=== PATIENT | female | born 1995 | race Caucasian/White ===

== ENCOUNTER 2020-06-12 15:58 | Inpatient (IN) | payer OTHER ==
[~2020-06-12] VITALS: Ht 188 cm; Wt 77.6 kg
[2020-06-12] MEDS ORDERED: IV RINGERS,LACTATED 1000ML 1,000 ML IV SCH (16:01)
[2020-06-12 16:36] LABS: BASO # 0.1 x10^3/uL (0.0-0.2); BASO % 0 % (0-3); EOS # 0.2 x10^3/uL (0.0-0.7); EOS % 1 % (0-3); HEMOGLOBIN 14.1 g/dL (12.0-15.5); LYMPH # 2.8 x10^3/uL (1.0-4.8); LYMPH % 14 % (24-48); MEAN CORPUSCULAR HEMOGLOBIN 33 pg (25-35); MEAN CORPUSCULAR HGB CONC 34 g/dL (31-37); MEAN CORPUSCULAR VOLUME 97 fL (79-100); MONO # 1.2 x10^3/uL (0.0-1.1); MONO % 6 % (0-9); NEUT # 15.7 x10^3/uL (1.8-7.7); NEUT % 79 % (31-73); PLATELET COUNT 388 x10^3/uL (140-400); RED BLOOD COUNT 4.23 x10^6/uL (3.50-5.40); RED CELL DISTRIBUTION WIDTH 13.9 % (11.5-14.5)
[2020-06-12 16:37] LABS: BILIRUBIN,URINE NEGATIVE (NEG); CLARITY,URINE CLEAR; COLOR,URINE YELLOW; NITRITE,URINE NEGATIVE (NEG); PROTEIN,URINE NEGATIVE (NEG-TRACE); UROBILINOGEN,URINE 0.2 mg/dL (0.2 mg/dL)
[2020-06-12 16:50] LABS: BACTERIA,URINE MANY /HPF (0-FEW); RBC,URINE OCC /HPF (0-2); SQUAMOUS EPITHELIAL CELL,UR MOD /LPF
[2020-06-12 17:00] LABS: CALCIUM 9.5 mg/dL (8.5-10.1); CREATININE 0.6 mg/dL (0.6-1.0); GFR 121.8; POTASSIUM 4.1 mmol/L (3.5-5.1)
[2020-06-12 17:01] LABS: CREATININE,RANDOM URINE 28.8 mg/dL (Not Establ.)
[2020-06-12 17:06] LABS: ALBUMIN 2.8 g/dL (3.4-5.0); ALBUMIN/GLOBULIN RATIO 0.7 (1.0-1.7); TOTAL BILIRUBIN 0.2 mg/dL (0.2-1.0); TOTAL PROTEIN 6.8 g/dL (6.4-8.2)
[2020-06-12] MEDS ORDERED: LIDOCAINE 1% PF 30 ML VIAL. INJ PRN (17:45)
[2020-06-12] MEDS ORDERED: CITRIC ACID/SODIUM CITRATE 30 ML SOLUTION. PO PRN (17:45)
[2020-06-12] MEDS ORDERED: 0.9 % SODIUM CHLORIDE 10 ML DISP.SYRIN. IV PRN (17:45)
[2020-06-12] MEDS ORDERED: ONDANSETRON PF 4 MG/2 ML VIAL. IVP PRN (17:45)
[2020-06-12] MEDS ORDERED: IBUPROFEN 400 MG TABLET. PO PRN (17:45)
[2020-06-12] MEDS ORDERED: TERBUTALINE 1 MG/ML VIAL. SQ PRN (17:45)
[2020-06-12] MEDS ORDERED: OXYTOCIN 30 UNIT/500 ML PREMIX 500 ML IV PRN ×2 (17:45)
[2020-06-12] MEDS ORDERED: fentaNYL PF VIAL 100 MCG/2 ML VIAL IVP PRN ×2 (17:45)
[2020-06-12 18:10] VITALS: BP 128/71
[2020-06-12] MEDS ORDERED: PREN1TAB58 PO (18:17)
[2020-06-12] MEDS ORDERED: DINOPROSTONE 10 MG SUPP.VAG VG ONE (19:00)
[2020-06-12] MEDS ORDERED: PENICILLIN G K 5,000,000 UNIT in IV DEXTROSE 5% 100ML 100 ML IV ONE (19:00)
[2020-06-12 19:24] LABS: % BANDS 2 % (0-9); % LYMPHS 9 % (24-48); % MONOS 10 % (0-10); % SEGS 79 % (35-66); PLT ESTIMATE ADEQUATE (ADEQUATE)
[2020-06-12] MEDS ORDERED: diphenhydrAMINE HCL 25 MG CAPSULE PO PRN (20:00)
--- NOTE | 2020-06-13 00:56 | PDOC1 ---
OB - History Hx of Present Care: Good Care Ultrasounds: Normal mid trimester US Obstetrical Complications: Pre-eclampsia Medical Complications: None Past Family/Social History * Past Medical, Surgical, Family and Obstetric Histories reviewed from chart. Rubella: Immune RPR/VDRL: Negative GBS Status: Positive HBsAG: Negative OB - Chief Complaint & HPI Date of Admission: Date of Admission: Jun 12, 2020 at 17:34 Chief Complaint/History : 5 Para: 3 EGA: 38 Reason for admission: induction of labor (preeclampsia) Admission Nurse Assessment Rev: Yes OB - Admission Exam Physical Exam Vitals: VS - Last 72 Hours, by Label Date Time Temp Pulse Resp B/P (MAP) Pulse Ox O2 Delivery O2 Flow Rate FiO2 06/12/20 18:10 99.0 100 20 128/71 (90) Room Air 99.0 HEENT: Normal Heart: Regular Rate Lungs: Clear Abdomen: Gravid, Non tender, Soft Extremities: Edema Reflexes: Normal Cervical Dilatation: 2cm Effacement: 75% Station: -3 Membranes: Intact Heart Rate: Normal Accelerations: Accelerations Present Decelerations: No decelerations Contractions on Admission: None Text A: 38 wks IUP Preeclampsia: mild P: Admit IOL for preeclampsia with cervidil, then pitocin in am. HAM MARIN Jr, MD Jun 13, 2020 00:56
[2020-06-13] MEDS: PENICILLIN G K 2,500,000 UNIT in IV DEXTROSE 5% 50 ML IV SCH ×2 (03:01→08:10)
[2020-06-13] MEDS: IV RINGERS,LACTATED 1000ML 1,000 ML IV SCH (06:29)
--- NOTE | 2020-06-13 10:56 | PDOC ---
VAGINAL DELIVERY DATE DATE: 06/13/20 TIME: 10:53 : 5 Para: 4 EGA: 38 VAGINAL DELIVERY: VTX VACCUM ASSISTED: No PLACENTA: Spontaneous 8/9 SEX: Female WEIGHT Weight [ pending ] Nuchal Cord: No Amniotic Fluid: Clear PAIN: Natural EPISIOTOMY: No EXTENSION: Yes (1 st degree midline laceration; hemostatic) REPAIRED WITH no repair EBL 300 ml COMPLICATIONS none CONDITION pt. stable Signs of Intrauterine Infectio: None Shoulder Dystocia: No HAM MARIN Jr, MD Jun 13, 2020 10:55
[2020-06-13] MEDS ORDERED: diphenhydrAMINE HCL 25 MG CAPSULE PO PRN (11:00)
[2020-06-13] MEDS ORDERED: HYDROCORTISONE 1% TOPICAL OINTMENT 30GM TUBE. TP PRN (11:00)
[2020-06-13] MEDS ORDERED: DOCUSATE SODIUM 100 MG CAPSULE. PO PRN (11:00)
[2020-06-13] MEDS ORDERED: SIMETHICONE 80 MG TAB.CHEW PO PRN (11:00)
[2020-06-13] MEDS ORDERED: PHENYLEPH/MINERAL OIL/PETROLAT RECTAL OINTMENT TUBE. RC PRN (11:00)
[2020-06-13] MEDS ORDERED: MAGNESIUM HYDROXIDE 2,400 MG/30 ML ORAL.SUSP. PO PRN (11:00)
[2020-06-13] MEDS ORDERED: TDaP (Adacel) per PROTOCOL. MC PRN (11:00)
[2020-06-13] MEDS ORDERED: MAG HYDROX/ALUMINUM HYD/SIMETH 30 ML ORAL.SUSP PO PRN (11:00)
[2020-06-13] MEDS ORDERED: MMR per PROTOCOL. MC PRN (11:00)
[2020-06-13] MEDS ORDERED: OXYTOCIN 30 UNIT/500 ML PREMIX 500 ML IV PRN (11:00)
[2020-06-13] MEDS ORDERED: ZOLPIDEM 5 MG TABLET. PO PRN (11:00)
[2020-06-13] MEDS ORDERED: oxyCODONE/APAP 5/325 1 TAB TABLET PO PRN (11:00)
[2020-06-13] MEDS ORDERED: 0.9 % SODIUM CHLORIDE 10 ML DISP.SYRIN. IV PRN (11:00)
[2020-06-13] MEDS ORDERED: ACETAMINOPHEN 325 MG TABLET. PO PRN (11:00)
[2020-06-13] MEDS ORDERED: BENZOCAINE 20% TOPICAL AEROSOL SPRAY 57GM CAN. TP PRN (11:00)
[2020-06-13 12:45] VITALS: BP 102/60
[2020-06-13 13:45] VITALS: BP 121/73
[2020-06-13 16:41] VITALS: BP 116/75
[2020-06-13] MEDS ORDERED: FERROUS SULFATE 325 MG TABLET. PO SCH (17:00)
[2020-06-13 20:40] VITALS: BP 98/58
[2020-06-14] MEDS: IBUPROFEN 400 MG TABLET. PO PRN ×3 (00:12→18:04)
[2020-06-14 04:38] LABS: BASO % 0 % (0-3); EOS # 0.1 x10^3/uL (0.0-0.7); EOS % 1 % (0-3); HEMATOCRIT 37.9 % (36.0-47.0); HEMOGLOBIN 12.9 g/dL (12.0-15.5); LYMPH # 2.7 x10^3/uL (1.0-4.8); LYMPH % 16 % (24-48); MEAN CORPUSCULAR HEMOGLOBIN 33 pg (25-35); MEAN CORPUSCULAR HGB CONC 34 g/dL (31-37); MEAN CORPUSCULAR VOLUME 98 fL (79-100); MONO # 1.3 x10^3/uL (0.0-1.1); MONO % 8 % (0-9); NEUT # 12.7 x10^3/uL (1.8-7.7); NEUT % 76 % (31-73); PLATELET COUNT 357 x10^3/uL (140-400); RED BLOOD COUNT 3.87 x10^6/uL (3.50-5.40); RED CELL DISTRIBUTION WIDTH 14.1 % (11.5-14.5); WHITE BLOOD COUNT 16.9 x10^3/uL (4.0-11.0)
[2020-06-14] MEDS: IV RINGERS,LACTATED 1000ML 1,000 ML IV SCH (06:03)
[2020-06-14 06:18] VITALS: BP 105/66
--- NOTE | 2020-06-14 08:35 | PDOC ---
OB Progress Note Date of Service 06/14/20 Time of Evaluation 0830 Notes PT. feeling well. No complaints. Lab Laboratory Tests Test 06/12/20 16:20 06/12/20 17:28 06/12/20 20:30 06/14/20 03:05 White Blood Count 20.0 x10^3/uL (4.0-11.0) 16.9 x10^3/uL (4.0-11.0) Red Blood Count 4.23 x10^6/uL (3.50-5.40) 3.87 x10^6/uL (3.50-5.40) Hemoglobin 14.1 g/dL (12.0-15.5) 12.9 g/dL (12.0-15.5) Hematocrit 41.0 % (36.0-47.0) 37.9 % (36.0-47.0) Mean Corpuscular Volume 97 fL (79-100) 98 fL (79-100) Mean Corpuscular Hemoglobin 33 pg (25-35) 33 pg (25-35) Mean Corpuscular Hemoglobin Concent 34 g/dL (31-37) 34 g/dL (31-37) Red Cell Distribution Width 13.9 % (11.5-14.5) 14.1 % (11.5-14.5) Platelet Count 388 x10^3/uL (140-400) 357 x10^3/uL (140-400) Neutrophils (%) (Auto) 79 % (31-73) 76 % (31-73) Lymphocytes (%) (Auto) 14 % (24-48) 16 % (24-48) Monocytes (%) (Auto) 6 % (0-9) 8 % (0-9) Eosinophils (%) (Auto) 1 % (0-3) 1 % (0-3) Basophils (%) (Auto) 0 % (0-3) 0 % (0-3) Neutrophils # (Auto) 15.7 x10^3/uL (1.8-7.7) 12.7 x10^3/uL (1.8-7.7) Lymphocytes # (Auto) 2.8 x10^3/uL (1.0-4.8) 2.7 x10^3/uL (1.0-4.8) Monocytes # (Auto) 1.2 x10^3/uL (0.0-1.1) 1.3 x10^3/uL (0.0-1.1) Eosinophils # (Auto) 0.2 x10^3/uL (0.0-0.7) 0.1 x10^3/uL (0.0-0.7) Basophils # (Auto) 0.1 x10^3/uL (0.0-0.2) 0.0 x10^3/uL (0.0-0.2) Segmented Neutrophils % 79 % (35-66) Band Neutrophils % 2 % (0-9) Lymphocytes % 9 % (24-48) Monocytes % 10 % (0-10) Platelet Estimate Adequate (ADEQUATE) Urine Collection Type Unknown Urine Color Yellow Urine Clarity Clear Urine pH 7.0 (<5.0-8.0) Urine Specific [place] <=1.005 (1.000-1.030) Urine Protein Negative mg/dL (NEG-TRACE) Urine Glucose (UA) Negative mg/dL (NEG) Urine Ketones (Stick) Negative mg/dL (NEG) Urine Blood Negative (NEG) Urine Nitrite Negative (NEG) Urine Bilirubin Negative (NEG) Urine Urobilinogen Dipstick 0.2 mg/dL (0.2 mg/dL) Urine Leukocyte Esterase Moderate (NEG) Urine RBC Occ /HPF (0-2) Urine WBC 1-4 /HPF (0-4) Urine Squamous Epithelial Cells Mod /LPF Urine Bacteria Many /HPF (0-FEW) Urine Random Creatinine 28.8 mg/dL (Not Establ.) Urine Random Total Protein 14.0 mg/dL (Not Establ.) Urine Protein/Creatinine Ratio 486 mg/g (0-200) Sodium Level 135 mmol/L (136-145) Potassium Level 4.1 mmol/L (3.5-5.1) Chloride Level 102 mmol/L (98-107) Carbon Dioxide Level 21 mmol/L (21-32) Anion Gap 12 (6-14) Blood Urea Nitrogen 6 mg/dL (7-20) Creatinine 0.6 mg/dL (0.6-1.0) Estimated GFR (Cockcroft-Gault) 121.8 BUN/Creatinine Ratio 10 (6-20) Glucose Level 86 mg/dL (70-99) Calcium Level 9.5 mg/dL (8.5-10.1) Total Bilirubin 0.2 mg/dL (0.2-1.0) Aspartate Amino Transf (AST/SGOT) 17 U/L (15-37) Alanine Aminotransferase (ALT/SGPT) 14 U/L (14-59) Alkaline Phosphatase 121 U/L (46-116) Total Protein 6.8 g/dL (6.4-8.2) Albumin 2.8 g/dL (3.4-5.0) Albumin/Globulin Ratio 0.7 (1.0-1.7) Coronavirus (PCR) Not detected (Not Detected) SARS-CoV-2 Antigen (Rapid) Negative (NEGATIVE) Treponema pallidum Antibody Nonreactive (Nonreactive) Laboratory Tests Test 06/14/20 03:05 White Blood Count 16.9 x10^3/uL (4.0-11.0) Red Blood Count 3.87 x10^6/uL (3.50-5.40) Hemoglobin 12.9 g/dL (12.0-15.5) Hematocrit 37.9 % (36.0-47.0) Mean Corpuscular Volume 98 fL (79-100) Mean Corpuscular Hemoglobin 33 pg (25-35) Mean Corpuscular Hemoglobin Concent 34 g/dL (31-37) Red Cell Distribution Width 14.1 % (11.5-14.5) Platelet Count 357 x10^3/uL (140-400) Neutrophils (%) (Auto) 76 % (31-73) Lymphocytes (%) (Auto) 16 % (24-48) Monocytes (%) (Auto) 8 % (0-9) Eosinophils (%) (Auto) 1 % (0-3) Basophils (%) (Auto) 0 % (0-3) Neutrophils # (Auto) 12.7 x10^3/uL (1.8-7.7) Lymphocytes # (Auto) 2.7 x10^3/uL (1.0-4.8) Monocytes # (Auto) 1.3 x10^3/uL (0.0-1.1) Eosinophils # (Auto) 0.1 x10^3/uL (0.0-0.7) Basophils # (Auto) 0.0 x10^3/uL (0.0-0.2) Medications Current Medications Ringer's Solution 1,000 ml @ 125 mls/hr Q8H IV Last administered on 06/12/20at 23:08; Start 06/12/20 at 16:01; Stop 06/13/20 at 21:44; Status DC Sodium Chloride (Normal Saline Flush) 3 ml QSHIFT PRN IV AFTER MEDS AND BLOOD DRAWS; Start 06/12/20 at 17:45; Stop 06/13/20 at 21:44; Status DC Ringer's Solution 1,000 ml @ 125 mls/hr Q8H IV Last administered on 06/13/20at 06:29; Start 06/12/20 at 17:35 Fentanyl Citrate (Fentanyl 2ml Vial) 50 mcg PRN Q30MIN PRN IVP Mild to moderate pain; Start 06/12/20 at 17:45; Stop 06/13/20 at 21:44; Status DC Fentanyl Citrate (Fentanyl 2ml Vial) 100 mcg PRN Q30MIN PRN IVP Severe pain Last administered on 06/13/20at 10:24; Start 06/12/20 at 17:45; Stop 06/13/20 at 21:44; Status DC Ondansetron HCl (Zofran) 4 mg PRN Q4HRS PRN IVP NAUSEA/VOMITING; Start 06/12/20 at 17:45; Stop 06/13/20 at 21:44; Status DC Citric Acid/ Sodium Citrate (Bicitra) 30 ml 1X PRN PRN PO DYSPEPSIA; Start 06/12/20 at 17:45; Stop 06/13/20 at 17:44; Status DC Terbutaline Sulfate (Brethine) 0.25 mg 1X PRN PRN SQ SEE COMMENTS; Start 06/12/20 at 17:45; Stop 06/13/20 at 17:44; Status DC Lidocaine HCl (Xylocaine 1% Pf 30ml Vial) 30 ml 1X PRN PRN INJ SEE COMMENTS; Start 06/12/20 at 17:45; Stop 06/13/20 at 21:44; Status DC Oxytocin/Sodium Chloride 500 ml @ 0 mls/hr CONT PRN IV SEE I/O RECORD Last administered on 06/13/20at 08:10; Start 06/12/20 at 17:45; Stop 06/13/20 at 21:44; Status DC Oxytocin/Sodium Chloride 500 ml @ 0 mls/hr CONT PRN PRN IV Post delivery bleeding; Start 06/12/20 at 17:45 Ibuprofen (Motrin) 800 mg PRN Q6HRS PRN PO PAIN Last administered on 06/13/20at 16:09; Start 06/12/20 at 17:45; Stop 06/13/20 at 21:44; Status DC Penicillin G Potassium 2670781 unit/Dextrose 100 ml @ 100 mls/hr 1X ONCE IV Last administered on 06/12/20at 23:08; Start 06/12/20 at 19:00; Stop 06/12/20 at 19:59; Status DC Penicillin G Potassium [id number] unit/Dextrose 50 ml @ 100 mls/hr Q4H IV Last administered on 06/13/20at 08:10; Start 06/12/20 at 23:00; Stop 06/13/20 at 21:44; Status DC Dinoprostone (Cervidil) 10 mg 1X ONCE VG Last administered on 06/12/20at 18:34; Start 06/12/20 at 19:00; Stop 06/12/20 at 19:01; Status DC Diphenhydramine HCl (Benadryl) 50 mg PRN QHS PRN PO INSOMNIA; Start 06/12/20 at 20:00 Sodium Chloride (Normal Saline Flush) 10 ml QSHIFT PRN IV AFTER MEDS AND BLOOD DRAWS; Start 06/13/20 at 11:00 Oxytocin/Sodium Chloride 500 ml @ 62.5 mls/hr CONT PRN IV SEE I/O RECORD; Start 06/13/20 at 11:00; Stop 06/13/20 at 18:59; Status DC Acetaminophen (Tylenol) 650 mg PRN Q6HRS PRN PO MILD PAIN / TEMP > 100.3'F; Start 06/13/20 at 11:00 Ibuprofen (Motrin) 800 mg PRN Q8HRS PRN PO INFLAMMATION/PAIN PREVENTION Last administered on 06/14/20at 00:12; Start 06/13/20 at 11:00 Docusate Sodium (Colace) 100 mg PRN BID PRN PO HARD STOOL; Start 06/13/20 at 11:00 Magnesium Hydroxide (Milk Of Magnesia) 2,400 mg PRN DAILY PRN PO CONSTIPATION; Start 06/13/20 at 11:00 Al Hydroxide/Mg Hydroxide (Mylanta Plus Xs) 30 ml PRN Q4HRS PRN PO HEARTBURN / GAS; Start 06/13/20 at 11:00 Simethicone (Gas-X) 80 mg PRN AFTMEALHC PRN PO GAS / BLOATING; Start 06/13/20 at 11:00 Diphenhydramine HCl (Benadryl) 25 mg PRN Q6HRS PRN PO ITCHING; Start 06/13/20 at 11:00; Stop 06/13/20 at 21:44; Status DC Benzocaine (Americaine) 1 spray PRN QID PRN TP TOPICAL PAIN; Start 06/13/20 at 11:00 Phenyleph/Shark Oil/Min Oil/Petrol (Preparation H) 1 vivian PRN QID PRN RC RECTAL PAIN; Start 06/13/20 at 11:00 Hydrocortisone (Cortaid) 1 vivian PRN QID PRN TP PERINEAL PAIN; Start 06/13/20 at 11:00 Ferrous Sulfate (Feosol) 325 mg BIDWMEALS PO ; Start 06/13/20 at 17:00 Zolpidem Tartrate (Ambien) 5 mg PRN QHS PRN PO INSOMNIA, MAY REPEAT X1; Start 06/13/20 at 11:00 Info (Do NOT chart on this placeholder) 1 ea 1X PRN PRN MC SEE COMMENTS; Start 06/13/20 at 11:00 Info (Do NOT chart on this placeholder) 1 ea 1X PRN PRN MC SEE COMMENTS; Start 06/13/20 at 11:00 Oxycodone/ Acetaminophen (Percocet 5/325) 2 tab PRN Q4HRS PRN PO MODERATE PAIN, SEVERE PAIN; Start 06/13/20 at 11:00 Multivitamins (Thera M Plus) 1 tab DAILY PO ; Start 06/14/20 at 09:00 Active Scripts Active Reported Vitamins ( Vits W-Ca,Fe,Fa(<1MG)) 1 Each Tablet 1 Tab PO DAILY 30 Days Exam Abd: soft, non tender, fundus firm Assessment PPD#1 s/p Plan of Care: Continue current Tx, Mgmt HAM MARIN Jr, MD Jun 14, 2020 08:35
[2020-06-14] MEDS ORDERED: MULTIVITAMIN with MINERAL TABLET. PO SCH (09:00)
--- NOTE | 2020-06-14 09:40 | HP ---
ADMIT DATE: HISTORY OF PRESENT ILLNESS: The patient is a baby that was delivered to a mom on 06/13/2020. The baby's mom's information is that she is a 25-year-old 5, para 4. The weight of this baby was 7 pounds 12.7 ounces or 3535 g. The Apgars were 8 and 9. The baby was brought to nursery in good condition. Mother's information including labs reveals a blood type was A positive. Hepatitis B status was negative. Her beta strep culture was positive. HIV screen was negative. RPR was nonreactive. Mom received some fentanyl during the Labor and antibiotics, she received 3 doses prior to delivery of penicillin G. The baby was brought to nursery again in good condition, again with Apgars of 8 and 9. BABY'S PHYSICAL EXAMINATION: GENERAL: Reveals that again weight of 7 pounds 12.7 ounces or 3535 grams, length was 19-3/4 inches, head circumference was 13-1/2 inches and chest circumference was 12.5 inches. HEENT: The baby's physical exam revealed the head to be grossly normocephalic. The ears were unremarkable. Pinna normal. Canals appeared to be present and patent. Nose is present and patent. The pharynx is unremarkable with a palate that appears to be intact. The eyes are unremarkable with a red reflex noted. EOMs are grossly within normal limits. NECK: Supple. Clavicles are intact bilaterally. BACK AND SPINE: Appeared to be normal. HEART: No murmurs noted. Femoral pulses are noted. Capillary refill and perfusion appeared to be adequate. ABDOMEN: Unremarkable. There appears to be a 3-vessel cord. HIPS JOINTS AND EXTREMITIES: Appeared to be normal. There is no hip click noted. GENITALIA: Grossly externally normal female. The anus appears to be present and patent. SKIN: So. NEUROLOGIC: Reveals a positive [place]. Overall, tone is normal. Motor and sensory modalities are unremarkable. MENTAL STATUS: Unremarkable for age. ASSESSMENT: This is a full-term appropriate for gestational age female. Mother was group B strep positive and mother did receive 3 doses of antibiotics prior to the delivery. PLAN: This patient to observe carefully in the nursery and probable discharge tomorrow if there are no other issues. ARIAN POLANCO MD DR: Darron JOB#: [id number] / [id number]
[2020-06-14 10:50] VITALS: BP 111/66
[2020-06-14 18:09] VITALS: BP 105/66
[2020-06-15 00:20] VITALS: BP 124/76
[2020-06-15] MEDS: IBUPROFEN 400 MG TABLET. PO PRN (05:52)
[2020-06-15 06:00] VITALS: BP 98/60
[2020-06-15 12:00] VITALS: BP 109/64
--- NOTE | 2020-06-15 13:00 | PDOC3 ---
OB DISCHARGE SUMMARY DATE OF ADMISSION: 06/12/20 DATE OF DISCHARGE: 06/15/20 REASON FOR ADMISSION: Induction of labor (preeclampsia) INTRAPARTUM PROCEDURES: Spontanous Vag Deliv DISCHARGE DIAGNOSIS: Preclampsia, Term Delivered DISCHARGE INFORMATION: Activity (ad ananya), Diet (regular), Instructions (pelvic rest x 6 wks) HOSPITAL COURSE Term gestation delivered vaginally without complications HAM MARIN Jr, MD Jun 15, 2020 13:00
[2020-06-15] MEDS ORDERED: IBUP-1027 PO (13:01)
--- NOTE | 2020-06-15 13:02 | DISCH ---
DISCHARGE INSTRUCTIONS Condition on Discharge Condition on Discharge: Stable Activity After Discharge Activity Instructions for Disc: Activity as tolerated Lifting Instructions after Dis: No heavy lifting Driving Instructions after Dis: Do not drive today Diet after Discharge Diet after Discharge: Regular Contacting the [facility] after DC Call your doctor for: Concerns you may have Follow-Up Follow up with: Dr. Grullon in 6 wks. HAM GRULLON Jr, MD Jun 15, 2020 13:02
[2020-06-15 13:10] VITALS: BP 104/63
--- NOTE | 2020-06-15 13:10 | NUR ---
Discharge instructions given to pt. Pt verbalized understanding, denied any questions. Pt discharged home.
== END 2020-06-15 13:40 | disposition home or self-care (01) | DRG 807 ==
LOC: 3 SO LND 15:58 → OBSVTOIN 17:34 → 3 NORTH 06-13 12:45
PROVIDERS: ADMIT Obstetrics & Gynecology; ATTEND Obstetrics & Gynecology
PROC: 10E0XZZ Delivery of Products of Conception, External Approach (ICD-10-PCS; principal; 2020-06-13)
DX: O14.94 Unspecified pre-eclampsia, complicating childbirth (principal); Z37.0 Single live birth; O99.824 Streptococcus B carrier state complicating childbirth; Z20.828 Contact with and (suspected) exposure to other viral communicable diseases; Z3A.38 38 weeks gestation of pregnancy; O70.0 First degree perineal laceration during delivery
CPT/HCPCS: 36415; 80053; 81001; 82570; 84156; 85007; 85025; 86592; 86850; 86900; 86901; 87086; 87426; G0378; G0379; J2540; J2590; J3010; J7060; J7120; U0003-CS